=== PATIENT | female | born 1950 | race Caucasian/White ===

== ENCOUNTER 2016-05-27 04:12 | Inpatient (IN) | payer OTHER ==
[~2016-05-27] VITALS: Ht 168.9 cm; Wt 79.4 kg
[~2016-05-27 04:12] MED LIST: ADVAIR 250-501 EACH INH; ASPIRIN EC81 M1 PO; COREG25 M1 PO; EXFORGE 10-3201 EACH PO; FERROUS SULFAT325 M3 PO; HYDROCHLOROTH12.5 M2 PO; LIPITOR40 M1 PO; PLAVIX75 M1 PO; PROTONIX40 M3 PO; SPIRIVA18 MCG INH; TYLENOL WITH C1 EACH PO; VITAMIN D31000 UNI2 PO; ZOLOFT100 M1 PO
[2016-05-27] MEDS ORDERED: ASPIRIN325 M2 PO ×3 (10:28→14:29)
[2016-05-27] MEDS ORDERED: MIRALAX17 G1 PO (10:28)
[2016-05-27] MEDS ORDERED: DILAUDID2 M1 PO (10:28)
[2016-05-27] MEDS ORDERED: COLACE100 M1 PO (10:28)
[2016-05-27] MEDS ORDERED: MORPHINE SULFAT15 M3 PO (10:28)
--- NOTE | 2016-05-27 10:30 | Patient Discharge Instructions ---
Discharge Instructions General Discharge Information You were seen/treated for: Right hip pain You had these procedures: 05/27/16 right total hip arthroplasty Watch for these problems: Redness, swelling, fever, signs of infection. Uncontrolled pain, Excessive bleeding. Decreased range of motion or unable to bear weight. Chest pain, shortness of breath. Do not soak the wound: Yes No bath, but you may shower: Yes Other wound care: Daily dry dressing changes Special Instructions: Take Aspirin 325mg by mouth twice a day (1 in morning and 1 at night) for three weeks then stop and resume your normal plavix and baby aspirin doses. Diet Continue normal diet: Yes Activity Activity Self Limited: Yes Activity Limited to: Weight bear as tolerated Additional ACTIVITY Info: Daily physical therapy Acute Coronary Syndrome Inclusion Criteria At DC or during hospital stay patient has or had the following: ACS DIAGNOSIS No Discharge Core Measures Meds if any: Prescribed or Continued at Discharge Meds if any: NOT Prescribed or Continued at Discharge Congestive Heart Failure Inclusion Criteria At DC or during hospital stay patient has or had the following: CHF DIAGNOSIS No Discharge Core Measures Meds if any: Prescribed or Continued at Discharge Meds if any: NOT Prescribed or Continued at Discharge Cerebrovascular accident Inclusion Criteria At DC or during hospital stay patient has or had the following: CVA/TIA Diagnosis No Discharge Core Measures Meds if any: Prescribed or Continued at Discharge Meds if any: NOT Prescribed or Continued at Discharge Venous thromboembolism Inclusion Criteria VTE Diagnosis No VTE Type NONE VTE Confirmed by (Test) NONE Discharge Core Measures - Per Current guidelines, there needs to be overlap - treatment for the first 5 days of Warfarin therapy. - If discharged on Warfarin prior to 5 days of - overlap therapy, the patient will need to be - assessed for post discharge needs including - *Post discharge parental anticoagulation - *Warfarin and/or parental anticoagulation education - *Follow up date to check INR post discharge At least 5 days overlap therapy as Inpatient No Meds if any: Prescribed or Continued at Discharge Note: Overlap Therapy is Warfarin and Anticoagulant Meds if any: NOT Prescribed or Continued at Discharge
--- NOTE | 2016-05-27 10:31 | Admission Core Measures ---
Admission Meds I reviewed the following Meds: Current Medications Sig/Maribel Start time Last Medication Dose Stop Time Status Admin Acetaminophen 975 MG ONCE 05/27 0000 NR (Tylenol) 05/27 2358 Amlodipine Besylate 10 MG DAILY 05/28 1000 UNVr (Norvasc) Atorvastatin Calcium 40 MG DAILY 05/28 1000 UNVr (Lipitor) Budesonide/ 2 PUF BID 05/27 2199 UNVr Formoterol Fumarate (Symbicort) Carvedilol 25 MG BID 05/27 2199 UNVr (Coreg) Cefazolin Sodium 2,000 MG ONCE 05/27 0000 NR (Kefzol-Ancef Inj) 05/27 2358 Hydrochlorothiazide 12.5 MG DAILY 05/28 1000 UNVr (Hydrodiuril) Oxycodone HCl 10 MG ONCE 05/27 0000 NR (Roxicodone) 05/27 2358 Pantoprazole Sodium 40 MG DAILY 05/28 1000 UNVr (Protonix) Sertraline HCl 100 MG DAILY 05/28 1000 UNVr (Zoloft) Tiotropium [place] 1 PUF DAILY 05/28 1000 UNVr (Spiriva) Acute Coronary Syndrome Inclusion Criteria ACS Diagnosis No Inpatient Core Measures LDL Reminder: If No, please order W/I first 24hr of stay Congestive Heart Failure Inclusion Criteria CHF Diagnosis No Cerebrovascular accident Inclusion Criteria CVA/TIA Diagnosis No Inpatient Core Measures Bedside Swallow Eval Reminder: If BSE failed, place ST order Antithrombotic Reminder: Order Antithrombotic Medication by end of day 2 Antithrombotic Reminder: Document Reason Antithrombotic Not ordered by end of day 2 AFIB/Flutter Reminder: If Present, add to problem list AFIB/Flutter Reminder: Order Anticoag Medication for pts with AFIB/Flutter Atherosclerosis Reminder: If Present, add to problem list LDL Reminder: If No, please order W/I first 24hr of stay PT Order Reminder: If No, please order Venous thromboembolism Inpatient Core Measures VTE Risk Factors: Age > 40, [facility] prophylaxis d/t No contraindications No VTE Pharm Prophylaxis d/t No contraindications Inclusion Criteria - Per Current guidelines, there needs to be overlap - treatment for the first 5 days of Warfarin therapy. - Parenteral Anticoagulation (IV or SC) needs to be - given along with Warfarin therapy. VTE Diagnosis No VTE Type NONE VTE Confirmed by (Test) NONE Problem List As ranked by this Provider includes Assessment & Plan 1. Status post total hip replacement, right HOME MEDS Home Med List Amlodipine/Valsartan (Exforge 10-320 MG Tablet) 10 MG-320 MG TABLET 1 TAB PO DAILY HTN (Reported) Aspirin (Ecotrin*) 81 MG TABLET.DR 1 TAB PO DAILY PROPHO (Reported) Aspirin (Aspirin*) 325 MG TABLET 1 TAB PO BID BLOOD THINNER Atorvastatin Calcium (Lipitor) 40 MG TABLET 1 TAB PO DAILY CHOLESTEROL ( Reported) Carvedilol (Coreg) 25 MG TABLET 1 TAB PO BID HTN (Reported) Cholecalciferol (Vitamin D3) 1,000 UNIT TABLET 2 TAB PO DAILY PROPHO ( Reported) Clopidogrel Bisulfate (Plavix) 75 MG TABLET 1 TAB PO DAILY PVD (Reported) Docusate Sodium (Colace) 100 MG CAPSULE 1 CAP PO BID PRN CONSTIPATION Ferrous Sulfate 325 MG (65 MG IRON) TABLET 1 TAB PO TID ANEMIA (Reported) Fluticasone/Salmeterol (Advair 250-50 Diskus) 250 MCG-50 MCG/DOSE BLST.W.DEV 1 PUF INH BID COPD (Reported) Hydrochlorothiazide 12.5 MG TABLET 1 TAB PO DAILY BP (Reported) Hydromorphone HCl (Dilaudid) 2 MG TABLET 1-2 TAB PO Q4-6P PRN PAIN Morphine Sulfate (Morphine Sulfate ER) 15 MG TABLET.ER 1 TAB PO BIDP PAIN Pantoprazole Sodium (Protonix) 40 MG TABLET.DR 1 TAB PO DAILY GERD (Reported) Polyethylene Glycol 3350 (Miralax) 17 GRAM POWD.PACK 1 PAC PO DAILY PRN CONSTIPATION Sertraline HCl (Zoloft) 100 MG TABLET 1 TAB PO DAILY DEPRESSION (Reported) Tiotropium [place] (Spiriva) 18 MCG CAP.W.DEV 1 CAP INH DAILY COPD (Reported)
--- NOTE | 2016-05-27 10:32 | Discharge Summary ---
Visit Information Visit Dates Admission Date: 05/27/16 Discharge Date: 05/27/16 Hospital Course Course Attending Physician: ADEN YBARRA MD Primary Care Physician: WELLINGTON BERNSTEIN MD Hospital Course: Patient admitted to floor following procedure below. Patient ambulated with PT upon arrival to the floor. Patient continued to progress well. Upon discharge patient is afebrile, tolerating diet, pain controlled, ambulating well with rolling walker and PT. Complications: None Allergies: Coded Allergies: NO KNOWN ALLERGIES (05/23/16) Significant Procedures: 05/27/16 right total hip arthroplasty Disposition Summary Disposition Principal Diagnosis: Right hip pain Additional Diagnosis: None Discharge Disposition: home health services Discharge Instructions General Discharge Information Code Status: Full Code Patient's Diet: Resume normal diet Patient's Activity: Weightbearing as tolerated Daily physical therapy Follow-Up Instructions/Appts: Call office to schedule follow-up appointment. Medications at Discharge Discharge Medications: Stop taking the following medications: Clopidogrel Bisulfate (Plavix) 75 MG TABLET ORAL DAILY Aspirin (Ecotrin*) 81 MG TABLET.DR ORAL DAILY Continue taking these medications: Amlodipine/Valsartan (Exforge 10-320 MG Tablet) 10 MG-320 MG TABLET 1 Tablet ORAL DAILY Instructions: NIGHTLY Atorvastatin Calcium (Lipitor) 40 MG TABLET 1 Tablet ORAL DAILY Sertraline HCl (Zoloft) 100 MG TABLET 1 Tablet ORAL DAILY Pantoprazole Sodium (Protonix) 40 MG TABLET.DR 1 Tablet ORAL DAILY Cholecalciferol (Vitamin D3) 1,000 UNIT TABLET 2 Tablet ORAL DAILY Ferrous Sulfate (Ferrous Sulfate) 325 MG (65 MG IRON) TABLET 1 Tablet ORAL THREE TIMES DAILY Carvedilol (Coreg) 25 MG TABLET 1 Tablet ORAL TWICE DAILY Hydrochlorothiazide (Hydrochlorothiazide) 12.5 MG TABLET 1 Tablet ORAL DAILY Fluticasone/Salmeterol (Advair 250-50 Diskus) 250 MCG-50 MCG/DOSE BLST.W.DEV 1 Puff Inhale through mouth TWICE DAILY Tiotropium [place] (Spiriva) 18 MCG CAP.W.DEV 1 Capsule Inhale through mouth DAILY Start taking the following new medications: Aspirin (Aspirin*) 325 MG TABLET 1 Tablet ORAL TWICE DAILY Qty = 42 No Refills Morphine Sulfate (Morphine Sulfate ER) 15 MG TABLET.ER 1 Tablet ORAL 2 x Daily as needed Qty = 5 No Refills Hydromorphone HCl (Dilaudid) 2 MG TABLET 1-2 Tablet ORAL Q4-6P as needed for PAIN Qty = 36 No Refills Comments: Last Taken:05/27/16-- DILAUDID 2 MG GIVEN Time: 4:12 PM Docusate Sodium (Colace) 100 MG CAPSULE 1 Capsule ORAL TWICE DAILY as needed for CONSTIPATION Qty = 30 No Refills Polyethylene Glycol 3350 (Miralax) 17 GRAM POWD.PACK 1 Packet ORAL DAILY as needed for CONSTIPATION Qty = 14 No Refills Instructions: dissolve in water Copies To: AMANDEEP MENDEZ,WELLINGTON [facility]
--- NOTE | 2016-05-27 12:00 | RADIOLOGY REPORT ---
EXAMINATION: XR HIP, RIGHT CLINICAL INFORMATION: Status post right total hip replacement. COMPARISON: 04/22/2013 TECHNIQUE: AP and crosstable lateral views of the right hip. FINDINGS: Prosthetic components of the right total hip arthroplasty are appropriately aligned. No periprosthetic fracture. Gas from recent surgery is present in the surrounding soft tissues. IMPRESSION: Normal postoperative appearance of the right total hip prosthesis.
[2016-05-27 13:00] VITALS: BP 114/64
--- NOTE | 2016-05-27 14:32 | NUR ---
PATIENT RECEIVED FROM PACU AT 1300. PATIENT ALERT AND ORIENTED X 3. OOB WITH PT, WALKING WITH RW. PATIENT DENIES ANY PAIN. ADMISSION COMPLETE. BELKIS STOCKING AND ALPS APPLIED. DURAKOOL ALSO IN PLACE. CALL LIGHT WITHIN REACH. WILL CONTINUE TO MONITOR.
--- NOTE | 2016-05-27 14:50 | PN- Orthopedic ---
See Addendum Subjective Subjective: Post op check Awake and alert post op No pain at this time Has already walked with PT but hasn't cleared stairs yet Tolerating diet Objective Vital Signs and I&Os Vital Signs Date Time Temp Pulse Resp B/P Pulse O2 O2 Flow FiO2 Ox Delivery Rate 05/27 1300 97.5 63 16 114/64 93 Room Air Intake & Output 05/27 1600 05/27 0800 05/27 0000 05/26 1600 05/26 0800 05/26 0000 Intake Total 555 Output Total Balance 555 Intake, IV 75 Intake, Oral 480 Patient 175 lb Weight Physical Exam: vss, afebrile voided spontaneously General: alert and oriented times three Chest: clear anteriorly bilaterally, RRR Abd: soft, good bs Ext: warm, no edema, positive sensate, no calf tenderness, good strength Wound: dressed, dry Current Medications: Current Medications Sig/Maribel Start time Last Medication Dose Route Stop Time Status Admin Acetaminophen 650 MG Q4P PRN 05/27 1330 AC PO Acetaminophen 975 MG ONCE 05/27 0000 DC PO 05/27 2359 Amlodipine Besylate 10 MG DAILY 05/28 1000 AC PO Aspirin 325 MG BID 05/27 2200 AC PO Atorvastatin Calcium 40 MG DAILY 05/28 1000 AC PO Budesonide/ 2 PUF BID 05/27 2200 AC Formoterol Fumarate INH Carvedilol 25 MG BID 05/27 2200 AC PO Cefazolin Sodium 2 GM IQ8 05/27 1600 AC N/A 1 UNIT IV 05/28 0029 Cefazolin Sodium 2,000 MG ONCE 05/27 0000 DC IV 05/27 2359 Dextrose/Sodium 1,000 ML .[id number] 05/27 1330 AC 05/27 Chloride IV 1327 Docusate Sodium 100 MG DAILY 05/28 1000 AC PO Fentanyl Citrate 100 MCG .STK-MED ONE 05/27 0640 DC IM 05/27 0641 Hydrochlorothiazide 12.5 MG DAILY 05/28 1000 AC PO Hydromorphone HCl 2 MG Q4P PRN 05/27 1330 AC PO Hydromorphone HCl 4 MG Q4P PRN 05/27 1330 AC PO Losartan Potassium 100 MG DAILY 05/28 1000 AC PO Midazolam HCl 4 MG .STK-MED ONE 05/27 0640 DC IM 05/27 0641 Morphine Sulfate 2 MG Q2P PRN 05/27 1330 AC IV Ondansetron HCl 4 MG Q6P PRN 05/27 1330 AC IV Oxycodone HCl 10 MG .STK-MED ONE 05/27 0838 DC PO 05/27 0839 Oxycodone HCl 10 MG ONCE 05/27 0000 DC PO 05/27 2359 Pantoprazole Sodium 40 MG DAILY 05/28 1000 AC IV Patient Medication 1 ED .STK-MED ONE 05/27 1338 DC Teaching ED 05/27 1339 Polyethylene Glycol 17 GM DAILY NEEDED PRN 05/27 1330 AC PO Sertraline HCl 100 MG DAILY 05/28 1000 AC PO Tiotropium [place] 1 PUF DAILY 05/28 1000 AC INH Tranexamic Acid 2,000 MG .STK-MED ONE 05/27 0640 DC IV 05/27 0641 Assessment/Plan Assessment/Plan 65 yo female s/p R THR pain well controlled await PT clearance dc instructions given, all questions answered asa 325mg po bid for 3 weeks, then restart asa 81mg po daily and plavix daily as pre-op Core Measures/Miscellaneous Venous Thromboembolism VTE Risk Factors: Age > 40, Surgery VTE Contraindications: No Contraindications VTE Diagnosis: No VTE Type: NONE VTE Confirmed by (Test): NONE Beta Molly Is Beta Molly a Home Med? No Antibiotics Is Patient on Antibiotics? Yes If Yes: prophylaxis (24 hrs post op)
[2016-05-27 15:11] VITALS: BP 118/62
--- NOTE | 2016-05-27 17:23 | Operative Report ---
Operative/Inv Procedure Report Surgery Date: 05/27/16 Name of Procedure: Right total hip replacement Pre-Operative Diagnosis: Primary right hip DJD Post-Operative Diagnosis: Same Estimated Blood Loss: 250 Surgeon/Sound Engineer Audio Control: AMADA MENDEZ,ADEN Wynne Anesthesia: block Operative/Procedure Note Note: Description of Procedure: The patient was taken to the operating room and positively identified. After induction of spinal anesthesia and administration of appropriate pre-operative antibiotics, the patient was positioned supine on the operating room table and all bony prominences were well padded. After performing a surgical timeout, the right lower extremity was prepped and draped in the usual sterile fashion. A direct anterior approach was made to the right hip. The incision was carried sharply through superficial soft tissues to the level of the fascia. Meticulous hemostasis was maintained with Bovie electocautery. The fascia over the tensor fascia abby muscle was opened sharply and the interval between the TFL and the sartorius was entered bluntly taking care to stay lateral to the lateral femoral cutaneous nerve. Retractors were placed around the femoral neck and the pericapsular fat was identified. The ascending branches of the lateral femoral circumflex vessels were identified and carefully coagulated. The pericapsular fat and anterior capsule were then resected. A napkin ring osteotomy was performed and the femoral head was removed without difficulty. Attention was then turned to the acetabulum. After appropriate placement of retractors, the acetabulum was exposed. Soft tissue was cleaned from the acetabular margin and notch. Overhanging osteophytes were removed and the teardrop was exposed. The acetabulum was then sequentially reamed to accept a 56 mm Fadia Tritanium hemispherical solid back shell. This was impacted into place in the appropriate position and fitted with a 36 mm Trident X3 zero degree polyethylene insert. Attention was then turned to the femur. After performing the appropriate ligament releases, the proximal femur was exposed. It was then sequentially broached to accept a size 4 Strong accolade 2 stem. This was trialed for leg length and stability. The trial component was removed and the final component was impacted into place. The trunnion was carefully cleaned and fit with a 36 mm, +0 Biolox delta ceramic femoral head. The hip was reduced and put through a full range of motion and found to be stable. The articular space was then irrigated with sterile saline. The periarticular soft tissues were infilitrated with Marcaine. The fascial layer was closed with interrupted #1 vicryl suture and the skin was re-approximated with interrupted 2 -0 vicryl. The skin was closed with a running 3-0 V-Lock suture. Steri-strips and a sterile dressing were applied. The patient was awakened and taken to the recovery room in satisfactory condition.
--- NOTE | 2016-05-27 17:26 | NUR ---
PATIENT DISCHARGEDE HOME TO HOME HEALTH SERVICE.DISCHARGE PACKET GIVEN TO PATIENT. IV D/C'D. DINNER BAG GIVEN TO PATIENT AT TIME OF DISCHARGE. PATIENT LEFT SAFELY VIA WHEEL CHAIR.
== END 2016-05-27 17:23 | disposition home health service (06) | DRG 470 ==
LOC: ENRESERVTM → ENRESERVDT → SDA 04:12 → 2NA 13:05
PROVIDERS: ADMIT Orthopaedic Surgery
PROC: 0SR904A Replacement of Right Hip Joint with Ceramic on Polyethylene Synthetic Substitute, Uncemented, Open Approach (ICD-10-PCS; principal; 2016-05-27)
DX: M16.11 Unilateral primary osteoarthritis, right hip (principal); J44.9 Chronic obstructive pulmonary disease, unspecified; F32.9 Major depressive disorder, single episode, unspecified; I10 Essential (primary) hypertension; F17.200 Nicotine dependence, unspecified, uncomplicated; D50.9 Iron deficiency anemia, unspecified; Z86.73 Personal history of transient ischemic attack (TIA), and cerebral infarction without residual deficits; E78.5 Hyperlipidemia, unspecified
CPT/HCPCS: 2NASP; 73502-RT; 88304; 97110-GO; 97116-GO; 97161-GP; 97530-GO; J0690; J0735; J2405; J3490; J7042

== ENCOUNTER 2016-08-01 11:00 | Emergency (ER) | payer OTHER ==
[~2016-08-01] VITALS: Ht 167.6 cm; Wt 79.4 kg
[~2016-08-01 11:00] MED LIST changes: +ASPIRIN325 M2 PO; +COLACE100 M1 PO; +DILAUDID2 M1 PO; +MIRALAX17 G1 PO; +MORPHINE SULFAT15 M3 PO
--- NOTE | 2016-08-01 11:55 | ED SKIN/ALLERGY COMPLAINT ---
History of Present Illness General Chief Complaint: Lower Extremity Problems Stated Complaint: LFT KNEE BLEEDING Source: patient Exam Limitations: no limitations Allergies Coded Allergies: No Known Allergies (08/01/16) Reconcile Medications Amlodipine/Valsartan (Exforge 10-320 MG Tablet) 10 MG-320 MG TABLET 1 TAB PO DAILY HTN (Reported) NIGHTLY Aspirin (Aspirin*) 325 MG TABLET 1 TAB PO BID BLOOD THINNER Atorvastatin Calcium (Lipitor) 40 MG TABLET 1 TAB PO DAILY CHOLESTEROL ( Reported) Carvedilol (Coreg) 25 MG TABLET 1 TAB PO BID HTN (Reported) Cholecalciferol (Vitamin D3) 1,000 UNIT TABLET 2 TAB PO DAILY PROPHO ( Reported) Clopidogrel Bisulfate (Clopidogrel) 75 MG TABLET 1 TAB PO DAILY BLOOD THINNER (Reported) Docusate Sodium (Colace) 100 MG CAPSULE 1 CAP PO BID PRN CONSTIPATION Ferrous Sulfate 325 MG (65 MG IRON) TABLET 1 TAB PO TID ANEMIA (Reported) Fluticasone/Salmeterol (Advair 250-50 Diskus) 250 MCG-50 MCG/DOSE BLST.W.DEV 1 PUF INH BID COPD (Reported) Hydrochlorothiazide 12.5 MG TABLET 1 TAB PO DAILY BP (Reported) Hydromorphone HCl (Dilaudid) 2 MG TABLET 1-2 TAB PO Q4-6P PRN PAIN Morphine Sulfate (Morphine Sulfate ER) 15 MG TABLET.ER 1 TAB PO BIDP PAIN Pantoprazole Sodium (Protonix) 40 MG TABLET.DR 1 TAB PO DAILY GERD (Reported) Polyethylene Glycol 3350 (Miralax) 17 GRAM POWD.PACK 1 PAC PO DAILY PRN CONSTIPATION dissolve in water Sertraline HCl (Zoloft) 100 MG TABLET 1 TAB PO DAILY DEPRESSION (Reported) Tiotropium [place] (Spiriva) 18 MCG CAP.W.DEV 1 CAP INH DAILY COPD (Reported) Triage Note: PT TO ED FOR C/C OF "THERE WAS A WART ON MY L KNEE LAST NIGHT, BUT I WOKE UP AT 4AM AND NOTICED IT WAS GONE AND NOW THE SPOT WON'T STOP BLEEDING." PT IS ON PLAVIX AND BABY ASPIRIN FOR HX OF CVA. WENT TO WALK IN AND THEY SENT PT HERE. BLEEDING WELL CONTROLLED IN TRIAGE. Triage Nurses Notes Reviewed? yes Onset: Abrupt Duration: constant Timing: single episode today Severity: mild Severity Numbers: 1 No Modifying Factors: none HPI: Patient is a 65-year-old female with past medical history of CVA currently on aspirin and Plavix, hypertension, COPD, GERD who presents emergency room stating that a few years ago patient had a bleeding wart that was cauterized by her biotech production specialist or patient states that yesterday she has a known chronic or to the left lateral aspect of her knee where she woke up this morning with blood in her bed and the war seen to have been removed however patient denies any trauma or mechanism or scratching episode. Patient has tried direct pressure ice and STYPTIC pencil to try to stop the bleeding however the bleeding still continues. Denies any pain denies any lightheaded sensation or dizziness. (LOGAN MURRAY) Vital Signs & Intake/Output Vital Signs & Intake/Output Vital Signs Date Time Temp Pulse Resp B/P B/P Pulse O2 O2 Flow FiO2 Mean Ox Delivery Rate 08/01 1304 97.0 66 16 122/70 99 Room Air 08/01 1117 98.4 67 15 100/65 93 Room Air Room Air Past History Travel History Traveled to [place] past 21 day No Medical History Any Pertinent Medical History? see below for history Neurological: CVA EENT: SINUS SURGERY Cardiovascular: hypertension, hyperlipidemia Respiratory: COPD Gastrointestinal: GERD Hepatic: NONE Renal: NONE Musculoskeletal: osteoarthritis Psychiatric: NONE Endocrine: NONE Blood Disorders: anemia Cancer(s): NONE HOIST MECHANIC/Reproductive: TUBAL LIGITION History of MRSA: No History of VRE: No History of CDIFF: No Influenza Vaccine: 12/09/15 Surgical History Surgical History: non-contributory, N Psychosocial History Who do you live with Spouse Services at Home None What is your primary language Sinhala Tobacco Use: Current Daily Use Daily Tobacco Use Amount/Type: => 5 Cigarettes daily ETOH Use: denies use Illicit Drug Use: denies illicit drug use Family History Hx Contributory? No (LOGAN MURRAY) Review of Systems Review of Systems Constitutional: Reports: no symptoms. EENTM: Reports: no symptoms. Respiratory: Reports: no symptoms. Cardiovascular: Reports: no symptoms. GI: Reports: no symptoms. Genitourinary: Reports: no symptoms. Musculoskeletal: Reports: no symptoms. Skin: Reports: see HPI. Neurological/Psychological: Reports: no symptoms. Hematologic/Endocrine: Reports: see HPI, bleeding. Immunologic/Allergic: Reports: no symptoms. All Other Systems: Reviewed and Negative (LOGAN MURRAY) Physical Exam Physical Exam General Appearance: no apparent distress, alert, comfortable Comments: Well-developed well-nourished no apparent distress. HEENT: Atraumatic, extraocular motion intact Neck: Supple, no lymphadenopathy Back: Nontender Respiratory: No respiratory distress Extremities: No edema, full range of motion Neuro: Alert and oriented x3 Psych: Mood affect normal, normal memory normal judgment. Diagram Body: 1) Noted 5 mm circular dark skin wound with minimal peripheral active bleeding. No surrounding erythema no warmth no fluctuance no induration full active range of motion noted with left knee extension and flexion (LOGAN MURRAY) Progress Differential Diagnosis: HYPERCOAGULABLE STATE MELANOMA Plan of Care: Patient on examination has minimal bleeding and which Kaltostat and bandages were applied with direct pressure. After 20 minutes the wound was rechecked and no active bleeding was noted. Sudheer Bertrand MD also evaluated patient and agrees with disposition and plan (LOGAN MURRAY) Departure Departure Disposition: HOME OR SELF CARE Condition: Stable Clinical Impression Primary Impression: Skin avulsion Secondary Impressions: Verruca Referrals: AMANDEEP MENDEZ,WELLINGTON [facility] (PCP/Family) Additional Instructions: As discussed continue to apply direct pressure with the bandages provided to the emergency room today for the next 24 hours. Change THE DRESSINGS tomorrow and then leave area open to improve healing. If you know worsening symptoms of redness, pain, swelling, discharge or bleeding does not stop after 10 minutes in the future return to emergency room immediately. Follow-up next week with your biotech production specialist for further evaluation treatment Departure Forms: Customer Survey General Discharge Information (LOGAN MURRAY) PA/FLOWER CUTTER Co-Sign Statement Statement: ED Attending supervision documentation- [X] I saw and evaluated the patient. I have also reviewed all the pertinent lab results and diagnostic results. I agree with the findings and the plan of care as documented in the PA's/FLOWER CUTTER's documentation. [] I have reviewed the ED Record and agree with the PA's/FLOWER CUTTER's documentation. [] Additions or exceptions (if any) to the PAs/FLOWER CUTTER's note and plan are summarized below: [] (J CARLOS MENDEZ,SUDHEER De La Cruz)
[2016-08-01] MEDS ORDERED: CLOPIDOGREL75 M1 PO (12:32)
[2016-08-01 13:04] VITALS: BP 122/70
== END 2016-08-01 13:14 ==
LOC: ERH 11:00
DX: S81.002A Unspecified open wound, left knee, initial encounter (principal); B07.9 Viral wart, unspecified; X58.XXXA Exposure to other specified factors, initial encounter; Y93.9 Activity, unspecified; Y92.9 Unspecified place or not applicable

== ENCOUNTER → 2017-03-18 | Day surgery (SDC) | payer OTHER ==
[~2017-03-18] VITALS: Ht 167.6 cm; Wt 78.0 kg
[~2017-03-18] MED LIST changes: +CLOPIDOGREL75 M1 PO
--- NOTE | 2017-03-18 08:26 | Operative Report ---
Operative/Inv Procedure Report Surgery Date: 03/18/17 Name of Procedure: Cataract extraction with intraocular lens implantation left eye Pre-Operative Diagnosis: Age-related cataract left eye Post-Operative Diagnosis: Same Estimated Blood Loss: none Surgeon/Treating Plant Operator: Behzad MENDEZ,Antonio Garcia Anesthesia: local monitored anesthesi Complications: None Operative/Procedure Note Note: Preoperatively the patient was noted to have 20/40 vision in the left eye with a decrease with glare testing down to 20/60. The risks, benefits, and alternatives to surgery were discussed at length with the patient. Informed consent was obtained. The patient was brought to the operating room where the left eye was prepped and draped in the normal sterile fashion. A speculum was placed on the left eye with good exposure. A stab incision was made using a paracentesis blade. Intracameral lidocaine was placed. Viscoelastic was used to form the anterior chamber. A clear corneal incision was made using keratome blade. A continuous curvilinear capsulorrhexis was made using a cystotome needle followed by Utrata forceps. There was no extension of the rhexis. Hydrodissection was performed using balanced salt solution. The cataract was removed using a stop and chop technique. Residual cortex was removed using coaxial irrigation and aspiration. The capsule was polished using irrigation and aspiration and the posterior capsule was cleaned using a balanced salt solution jet. There was no residual lens material inside the eye. The capsular bag was reformed using viscoelastic. An intraocular lens SA60WF of power 20.5 was verified and confirmed. It was loaded into an injector and injected into the eye. The lens was placed entirely within the capsular bag. Viscoelastic was evacuated using irrigation and aspiration. The wounds were stromally hydrated and the eye filled to physiologic pressure using balanced salt solution. Intracameral cefuroxime was placed. Speculum was removed and a shield was placed on the eye. The patient was brought to the recovery area without incident. Instructions were given to follow-up the next day for routine postoperative care.
== END ==
LOC: STS 03:24
DX: H25.9 Unspecified age-related cataract (principal); I10 Essential (primary) hypertension; J44.9 Chronic obstructive pulmonary disease, unspecified; F17.210 Nicotine dependence, cigarettes, uncomplicated; Z86.73 Personal history of transient ischemic attack (TIA), and cerebral infarction without residual deficits
CPT/HCPCS: J2250; V2632

== ENCOUNTER → 2017-04-03 | Day surgery (SDC) | payer OTHER ==
[~2017-04-03] VITALS: Ht 167.6 cm; Wt 78.0 kg
--- NOTE | 2017-04-03 13:24 | Operative Report ---
Operative/Inv Procedure Report Surgery Date: 04/03/17 Name of Procedure: Cataract extraction with intraocular lens implantation right eye Pre-Operative Diagnosis: Age-related cataract right eye Post-Operative Diagnosis: Same Estimated Blood Loss: none Surgeon/Classroom Assistant: Behzad MENDEZ,Antonio Garcia Anesthesia: local monitored anesthesi Complications: None Operative/Procedure Note Note: Preoperatively the patient was noted to have 20/20 vision in the right eye with a decrease with glare testing down to 20/60. The risks, benefits, and alternatives to surgery were discussed at length with the patient. Informed consent was obtained. The patient was brought to the operating room where the right eye was prepped and draped in the normal sterile fashion. A speculum was placed on the right eye with good exposure. A stab incision was made using a paracentesis blade. Intracameral lidocaine was placed. Viscoelastic was used to form the anterior chamber. A clear corneal incision was made using keratome blade. A continuous curvilinear capsulorrhexis was made using a cystotome needle followed by Utrata forceps. There was no extension of the rhexis. Hydrodissection was performed using balanced salt solution. The cataract was removed using a stop and chop technique. Residual cortex was removed using coaxial irrigation and aspiration. The capsule was polished using irrigation and aspiration and the posterior capsule was cleaned using a balanced salt solution jet. There was no residual lens material inside the eye. The capsular bag was reformed using viscoelastic. An intraocular lens SA60WF of power 21.0 was verified and confirmed. It was loaded into an injector and injected into the eye. The lens was placed entirely within the capsular bag. Viscoelastic was evacuated using irrigation and aspiration. The wounds were stromally hydrated and the eye filled to physiologic pressure using balanced salt solution. Intracameral cefuroxime was placed. Speculum was removed and a shield was placed on the eye. The patient was brought to the recovery area without incident. Instructions were given to follow-up the next day for routine postoperative care.
== END ==
LOC: STS 02:18
DX: H25.9 Unspecified age-related cataract (principal); I10 Essential (primary) hypertension; J44.9 Chronic obstructive pulmonary disease, unspecified; Z86.73 Personal history of transient ischemic attack (TIA), and cerebral infarction without residual deficits; Z79.82 Long term (current) use of aspirin
CPT/HCPCS: J2250; V2632

== ENCOUNTER 2017-09-28 09:11 | Inpatient (IN) | payer OTHER ==
[~2017-09-28] VITALS: Ht 168.9 cm; Wt 81.3 kg
--- NOTE | 2017-09-28 10:01 | ED INFLUENZA/URI COMPLAINT ---
History of Present Illness General Chief Complaint: Upper Respiratory Sx/Fever Stated Complaint: URI Source: patient Exam Limitations: no limitations Vital Signs & Intake/Output Vital Signs & Intake/Output Vital Signs Date Time Temp Pulse Resp B/P B/P Pulse O2 O2 Flow FiO2 Mean Ox Delivery Rate 09/28 1559 Room Air Room Air 09/28 1539 99.2 91 18 112/71 09/28 1538 99.2 91 18 112/71 09/28 1400 99.2 09/28 1400 99.2 09/28 1332 98.5 87 20 130/70 94 Room Air Room Air 09/28 1305 101.3 09/28 1015 95 Room Air Room Air 09/28 1008 93 09/28 0915 99.8 96 18 101/67 94 Room Air Room Air Allergies Coded Allergies: No Known Allergies (08/01/16) Triage Note: TRIAGE: 67 Y/O FEMALE PRESENTS C/O COUGH, SOB SINCE FRIDAY. TEMP 99.8. PATIENT REPORTS TEMP ABOVE 100 PRIOR TO ARRIVAL - DID NOT TAKE MEDICATION FOR TEMP. SPO2 ON ROOM AIR IN TRIAGE: 94-95%. WAS RECENTLY ON AUGMENTIN 09/18-09/28 AND PRESNISONE X DAYS. Triage Nurses Notes Reviewed? yes HPI: 67-year-old female smoker(1 pack per day for 50 years) with past medical history of COPD not on home oxygen, hypertension, hyperlipidemia, TIA, chronic sinus infections, GERD and arthritis came to ED with chief complaint of productive cough, fever and generalized weakness for last 1 week. Patient reported that she was in her usual state of health until last when she started to experience having upper respiratory tract infection and she went to urgent care. The urgent care doctor prescribed her Augmentin for 10 days and prednisone for 5 days. [facility] she was taking her medications. Patient reported that she didn't get better with medications and she came back yesterday from vacation. Patient is still feeling generalized weakness, fever and episodes of cough with yellow colored sputum. Patient also reported having sweating. She checked her temperature this morning that was 100.5F. patient also reported having pain in the chest on taking deep breaths and while coughing. Patient also stated that she has headache but she didn't take any Tylenol. She also reported that her shortness of breath is worsening especially on exertion. Patient is using her inhalers nebulization treatment every day. Patient denied central chest pain, palpitation, nausea, vomiting, lightheadedness, diarrhea, constipation, abdominal pain, orthopnea and dysuria. (Ricardo MENDEZ,[place]) Reconcile Medications Amlodipine/Valsartan (Exforge 10-320 MG Tablet) 10 MG-320 MG TABLET 1 TAB PO DAILY HTN (Reported) NIGHTLY Aspirin (Ecotrin*) 81 MG TABLET.DR 1 TAB PO DAILY HEART/BLOOD (Reported) Atorvastatin Calcium (Lipitor) 40 MG TABLET 1 TAB PO DAILY CHOLESTEROL ( Reported) Carvedilol (Coreg) 25 MG TABLET 1 TAB PO BID HTN (Reported) Cholecalciferol (Vitamin D3) 1,000 UNIT TABLET 2 TAB PO DAILY PROPHO ( Reported) Clopidogrel Bisulfate (Clopidogrel) 75 MG TABLET 1 TAB PO DAILY BLOOD THINNER (Reported) Ferrous Sulfate 325 MG (65 MG IRON) TABLET 1 TAB PO TID ANEMIA (Reported) Fluticasone/Salmeterol (Advair 250-50 Diskus) 250 MCG-50 MCG/DOSE BLST.W.DEV 1 PUF INH BID COPD (Reported) Hydrochlorothiazide 12.5 MG TABLET 1 TAB PO DAILY BP (Reported) [place]-3/Dha/Epa/Fish Oil (Fish Oil 1,000 MG Softgel) 300 MG-1,000 MG CAPSULE 1 CAP PO BID SUPPLEMENT (Reported) Pantoprazole Sodium (Protonix) 40 MG TABLET.DR 1 TAB PO DAILY GERD (Reported) Sertraline HCl (Zoloft) 100 MG TABLET 1 TAB PO DAILY DEPRESSION (Reported) Tiotropium Pickett (Spiriva Respimat) 2.5 MCG/ACTUATION MIST.INHAL 2 PUFF INH QAM COPD (Reported) (Marla MENDEZ,Dontrell Garcia) Past History Travel History Traveled to [place] past 21 day No Medical History Any Pertinent Medical History? none Neurological: CVA EENT: SINUS SURGERY Cardiovascular: hypertension, hyperlipidemia Respiratory: COPD Gastrointestinal: GERD Hepatic: NONE Renal: NONE Musculoskeletal: osteoarthritis Psychiatric: NONE Endocrine: NONE Blood Disorders: anemia Cancer(s): NONE GUINEA PIG BREEDER/Reproductive: TUBAL LIGITION History of MRSA: No History of VRE: No History of CDIFF: No Surgical History Surgical History: non-contributory, N Psychosocial History Who do you live with Spouse Services at Home None What is your primary language Mexican Tobacco Use: Current Daily Use Daily Tobacco Use Amount/Type: => 5 Cigarettes daily ETOH Use: occasional use Illicit Drug Use: denies illicit drug use Family History Hx Contributory? No (Ricardo MENDEZ,[place]) Review of Systems Review of Systems Constitutional: Reports: chills, fever, weakness. EENTM: Reports: no symptoms. Respiratory: Reports: cough, short of breath, sputum production. Denies: hemoptysis, wheezing. Cardiovascular: Reports: chest pain. Denies: orthopena, palpitations, syncope. GI: Denies: abdominal pain, diarrhea, melena, nausea, vomiting. Genitourinary: Denies: frequency, hematuria, pain. Musculoskeletal: Reports: see HPI. Neurological/Psychological: Reports: no symptoms. (Ricardo MENDEZ,[place]) Physical Exam Physical Exam General Appearance: well developed/nourished, no apparent distress, alert, awake Head: atraumatic, normal appearance Eyes: Bilateral: normal appearance, PERRL, EOMI. Ears, Nose, Throat: normal ENT inspection, moist mucous membrane, hearing grossly normal Neck: normal inspection, supple Respiratory: normal breath sounds, chest non-tender, no respiratory distress Cardiovascular: regular rate/rhythm Gastrointestinal: normal bowel sounds, soft, non-tender Extremities: normal inspection Neurologic/Psych: no motor/sensory deficits, awake, alert, oriented x 3 Core Measures Sepsis Present: No Sepsis Focused Exam Completed? No (Ricardo MENDEZ,[place]) Progress Differential Diagnosis: pneumonia, pharyngitis, sinusitis Plan of Care: Orders Procedure Date/time Status CBC WITHOUT DIFFERENTIAL 09/29 0600 Active BASIC ELECTROLYTES PLUS BUN&CR 09/29 0600 Active Regular Diet 09/28 D Active RT: Evaluation 09/28 1558 Active Weight 09/28 1405 Active Vital Signs 09/28 1405 Active Teach/Educate 09/28 1405 Active Pain Treatment and Response 09/28 1405 Active Nutritional Intake, Monitor 09/28 1405 Active Isolation 09/28 1405 Active Intake & Output 09/28 1405 Active Patient Care Conference 09/28 1405 Active Activity/Ambulation 09/28 1405 Active BLOOD CULTURE 09/28 1315 Active STREP PNEUMO URINARY ANTIGEN 09/28 1304 Complete LEGIONELLA URINARY ANTIGEN 09/28 1304 Complete URINALYSIS 09/28 1304 Complete TRC EVALUATION (GEN) 09/28 1300 Complete Pathway - chart 09/28 1300 Active House Staff 09/28 1300 Active BLOOD CULTURE 09/28 1300 Active Code Status 09/28 1300 Active Patient Data 09/28 1140 Active ED Holding Orders 09/28 1134 Active Admit to inpatient 09/28 1134 Active Vital Signs 09/28 1134 Active Code Status 09/28 1134 Complete TROPONIN LEVEL 09/28 0946 Complete CBC WITHOUT DIFFERENTIAL 09/28 0946 Complete BASIC ELECTROLYTES PLUS BUN&CR 09/28 0946 Complete EKG 09/28 0946 Active Intake & Output 09/28 0914 Complete THERAPIST ORDERS 09/28 UNK Complete VTE Mechanical Prophylaxis 09/28 UNK Active Intake & Output 09/28 UNK Active Activity/Ambulation 09/28 UNK Active Current Medications Sig/Maribel Start time Last Medication Dose Stop Time Status Admin Azithromycin 250 MG 1200 09/29 1200 AC (Zithromax) Ceftriaxone Sodium 1,000 MG 1200 09/29 1200 AC (Rocephin) Enoxaparin Sodium 40 MG DAILY 09/29 0900 AC (Lovenox) Tiotropium Pickett 1 PUF DAILY 09/29 0900 AC (Spiriva) Albuterol Sulfate 3 ML EVERY 4 HRS/AWAKE 09/28 1600 UNV (Proventil) Ipratropium Pickett 2.5 ML EVERY 4 HRS/AWAKE 09/28 1600 UNV (Atrovent) Aspirin Buffered 81 MG DAILY 09/28 1400 AC 09/28 (Ecotrin) 1539 Atorvastatin Calcium 40 MG DAILY 09/28 1400 AC 09/28 (Lipitor) 1539 Carvedilol 25 MG BID 09/28 1400 AC 09/28 (Coreg) 1539 Cholecalciferol 1,000 IU DAILY 09/28 1400 AC 09/28 (Vitamin D) 1540 Clopidogrel Bisulfate 75 MG DAILY 09/28 1400 AC 09/28 (Plavix) 1540 Ferrous Sulfate 325 MG TID 09/28 1400 AC 09/28 (Feosol) 1539 Fish Oil 1,050 MG DAILY 09/28 1400 AC 09/28 ([place]-3) 1540 Hydrochlorothiazide 12.5 MG DAILY 09/28 1400 AC 09/28 (Hydrodiuril) 1539 Omeprazole 40 MG DAILY AC 09/28 1400 AC 09/28 (Prilosec) 1540 Sertraline HCl 100 MG DAILY 09/28 1400 AC 09/28 (Zoloft) 1541 Acetaminophen 650 MG Q6P PRN 09/28 1300 AC 09/28 (Tylenol) 1305 Acetaminophen 1,000 MG Q6 PRN 09/28 1300 AC (Ofirmev) Amlodipine Besylate 10 MG DAILY 09/28 1300 AC 09/28 (Norvasc) 1538 Laboratory Tests 09/28/17 1325: Urine Color YEL, Urine Clarity HAZY H, Urine pH 6.0, Ur Specific King >= 1.030, Urine Protein 100 H, Urine Ketones NEG, Urine Nitrite NEG, Urine Bilirubin NEG, Urine Urobilinogen 0.2, Ur Leukocyte Esterase NEG, Ur Microscopic SEDIMENT EXAMINED, Urine RBC 5-10 H, Urine WBC 1-3 H, Ur Epithelial Cells MOD H, Urine Bacteria FEW H, Hyaline Casts RARE H, Urine Mucus MOD H, Urine Hemoglobin MOD H, Urine Glucose NEG 09/28/17 1021: Anion Gap 12, Estimated GFR > 60, BUN/Creatinine Ratio 52.5 H, Troponin I < 0.01, CBC w Diff MAN DIFF ORDERED, RBC 4.38, MCV 95.7, MCH 31.9 H, MCHC 33.3, RDW 13.6, MPV 8.2, Gran % 93.1 H, Lymphocytes % 3.9 L, Monocytes % 2.6, Eosinophils % 0.2, Basophils % 0.2, Absolute Granulocytes 17.5 H, Absolute Lymphocytes 0.7 L, Absolute Monocytes 0.5, Absolute Eosinophils 0, Absolute Basophils 0, Normocytic RBCs VERIFIED, Normochromic RBCs VERIFIED Microbiology 09/28 1541 BLOOD: Blood Culture - RECD 09/28 1530 BLOOD: Blood Culture - RECD 09/28 1325 URINE ROUT: Legionella Antigen - COMP 09/28 132 URINE ROUT: Streptococcus pneumoniae Antigen (M - COMP Comments: Considering patient's past medical history of COPD she failed outpatient treatment with Augmentin times prednisone and she is still feeling generalized weakness with productive cough and fever. Patient is high risk for the pneumonia. Patient is 67-year-old female and smoker complaining of chest pain we will check her troponin and EKG to rule out any ischemic cardiac injury. We will check CBC and chest x-ray to look for pneumonia. Her WBC count is elevated probably due to prednisone use. Her chest x-ray showed questionable right lower pneumonia. Her rest of labs are still pending. We will cover the patient with azithromycin and ceftriaxone for community-acquired pneumonia. Patient will be admitted to inpatient. (Ricardo MENDEZ,Michel) Diagnostic Imaging: Viewed by Me: Radiology Read. Discussed w/RAD: Radiology Read. CXR Impression: PATIENT: JASON NORMAN PRESENT AGE: 67 PATIENT ACCOUNT NO: [id number] : 49 LOCATION: [facility] ORDERING PHYSICIAN: Michel Silva MD SERVICE DATE: 09/28/17 EXAM TYPE: RAD - XRY-CHEST XRAY , TWO VIEWS EXAMINATION: XR CHEST CLINICAL INFORMATION: Productive cough, fever and generalized weakness COMPARISON: Previous chest x-ray most recent November 2016 TECHNIQUE: 2 views of the chest were obtained. FINDINGS: The cardiac and mediastinal contours are stable. There is increased opacity in the left lower lobe questionable for small left lower lobe pneumonia. The lungs are otherwise clear. There is no pleural effusion or pneumothorax. There are degenerative changes of the spine. IMPRESSION: Question small left lower lobe pneumonia. DICTATED BY: Priscilla Wilson MD DATE/TIME DICTATED:09/28/171107 BOILING TUB OPERATOR:BRAXTON DATE/TIME TRANSCRIBED:09/28/171107 CONFIDENTIAL, DO NOT COPY WITHOUT APPROPRIATE AUTHORIZATION. <Electronically signed in Other Vendor System> SIGNED BY: Priscilla Wilson MD 09/28/17 1114 Initial ED EKG: NSR, nonspecific ST T wave chg Prior EKG: unchanged (Marla MENDEZ,Dontrell Garcia) Departure Departure Disposition: STILL A PATIENT Condition: Stable Clinical Impression Primary Impression: Community acquired pneumonia Referrals: Fior MENDEZ,Parvez Solis (PCP/Family) Departure Forms: Customer Survey General Discharge Information Admission Note Spoke With: Aldo MENDEZ,Amibob Documentation of Exam: Documentation of any treatments & extenuating circumstances including Concerns Regarding Discharge (functional status, medication knowledge or non-compliance, living conditions, etc.) that warrant an admission rather than observation: It's IV antibiotics for community-acquired pneumonia, pulmonary consult and respiratory treatments for COPD. (Michel Silva MD) Resident Co-Sign Statement Statement: ED Attending supervision documentation- [X] I saw and evaluated the patient. I have also reviewed all the pertinent lab results and diagnostic results. I agree with the findings and the plan of care as documented in the Resident's documentation. [X] I have reviewed the ED Record and agree with the Resident's documentation. [] Additions or exceptions (if any) to the Resident's note and plan are summarized below: [] (Marla MENDEZ,Dontrell Garcia)
[2017-09-28 10:37] LABS: ABSOLUTE BASOPHIL COUNT 0 /CUMM (0.0-0.2); ABSOLUTE EOSINOPHIL COUNT 0 /CUMM (0.0-0.7); ABSOLUTE GRANULOCYTE CT 17.5 /CUMM (1.4-6.5); ABSOLUTE LYMPH COUNT 0.7 /CUMM (1.2-3.4); ABSOLUTE MONOCYTE COUNT 0.5 /CUMM (0.10-0.60); BASOPHIL % 0.2 % (0.0-2.0); EOSINOPHIL % 0.2 % (0-5); GRANULOCYTE % 93.1 % (42.2-75.2); HEMATOCRIT 41.9 % (37-47); MEAN CORPUSCULAR HGB 31.9 PG (27.0-31.0); MEAN CORPUSCULAR HGB CONC 33.3 G/DL (33.0-37.0); MEAN CORPUSCULAR VOLUME 95.7 FL (81.0-99.0); MEAN PLATELET VOLUME 8.2 FL (7.4-10.4); PLATELET COUNT 345 /CUMM (130-400); RBC DISTRIBUTION WIDTH 13.6 % (11.5-14.5); RED BLOOD CELL CT 4.38 /CUMM (4.20-5.40); WHITE BLOOD CELL COUNT 18.8 /CUMM (4.8-10.8)
--- NOTE | 2017-09-28 11:14 | RADIOLOGY REPORT ---
EXAMINATION: XR CHEST CLINICAL INFORMATION: Productive cough, fever and generalized weakness COMPARISON: Previous chest x-ray most recent November 2016 TECHNIQUE: 2 views of the chest were obtained. FINDINGS: The cardiac and mediastinal contours are stable. There is increased opacity in the left lower lobe questionable for small left lower lobe pneumonia. The lungs are otherwise clear. There is no pleural effusion or pneumothorax. There are degenerative changes of the spine. IMPRESSION: Question small left lower lobe pneumonia.
[2017-09-28] MEDS ORDERED: ASPIRIN EC81 M1 PO (11:56)
[2017-09-28] MEDS ORDERED: FISH OIL 1,0001 EAC2 PO (11:57)
[2017-09-28] MEDS ORDERED: SPIRIVA RESPIMAT4 GM INH (11:58)
[2017-09-28] MEDS ORDERED: AMOX-CLAV 875-1 EACH PO (11:59)
--- NOTE | 2017-09-28 12:12 | History & Physical ---
Janna Live 09/28/17 1211: General Information and HPI MD Statement: I have seen and personally examined JASON CASTRO and documented this H&P. The patient is a 67 year old F who presented with a patient stated chief complaint of [CAP]. Source of Information: patient, old records Exam Limitations: no limitations History of Present Illness: Ms. Castro is a 67yo F active smoker w/ PMH of COPD not on home oxygen, hypertension, hyperlipidemia, CVA/TIA x 2 in 2009, chronic sinus infections, GERD and arthritis presented to the ER with T-max 100.4 at home, and increasing shortness of breath however without requiring any rescue inhalers for the past 3 days. Patient was recently seen by urgent care on 09/18/2017 for sinus pressure due to her underlying chronic sinusitis, and was given Augmentin for 10 days and prednisone tablets for 5 days. Patient then went on a trip to [facility], without any events during the trip without any sick contacts and nobody got sick from a trip. Patient was back on 09/25 and started feeling increasingly uncomfortable with profuse sweating, and later developed some increasing shortness of breath, without significant impact on her daily activities. Per patient, she had finished a course of Augmentin before the trip. Patient had fever of T-max 100.4 the night before ER visit, and the decided to bring the patient to the ER for further evaluation. At baseline, patient was ambulating freely, however with some balance issues but no recent falls. Patient had previous history of CVA/TIA more than 8 years ago, and was currently on Plavix/aspirin. Patient was compliant with all medications, and was not seeing any other doctors besides her PCP Dr. Childress. Patient has scheduled outpatient left shoulder replacement surgery on 10/13/2017, and has appointment of preop evaluation on coming Friday. Patient was concern of whether she would be able to make up to the schedule. During our clinical interaction, patient endorsed feeling of warmness, however denied sick contacts, lightheadedness/diaphoresis/night sweat/weight change/ Chest Pain/Palpitation/Abdominal pain/bowel movement or urinary abnormality, or other skin/musculoskeletal/neurological/mood disorders, or dietary/appetite change. -Smoking: Active smoker with half a pack per day -Alcohol: Occasional -Rec Drugs: Denied Allergies/Medications Allergies: Coded Allergies: No Known Allergies (08/01/16) Home Med list Amlodipine/Valsartan (Exforge 10-320 MG Tablet) 10 MG-320 MG TABLET 1 TAB PO DAILY HTN (Reported) NIGHTLY Aspirin (Ecotrin*) 81 MG TABLET.DR 1 TAB PO DAILY HEART/BLOOD (Reported) Atorvastatin Calcium (Lipitor) 40 MG TABLET 1 TAB PO DAILY CHOLESTEROL ( Reported) Carvedilol (Coreg) 25 MG TABLET 1 TAB PO BID HTN (Reported) Cholecalciferol (Vitamin D3) 1,000 UNIT TABLET 2 TAB PO DAILY PROPHO ( Reported) Clopidogrel Bisulfate (Clopidogrel) 75 MG TABLET 1 TAB PO DAILY BLOOD THINNER (Reported) Ferrous Sulfate 325 MG (65 MG IRON) TABLET 1 TAB PO TID ANEMIA (Reported) Fluticasone/Salmeterol (Advair 250-50 Diskus) 250 MCG-50 MCG/DOSE BLST.W.DEV 1 PUF INH BID COPD (Reported) Hydrochlorothiazide 12.5 MG TABLET 1 TAB PO DAILY BP (Reported) Melvin-3/Dha/Epa/Fish Oil (Fish Oil 1,000 MG Softgel) 300 MG-1,000 MG CAPSULE 1 CAP PO BID SUPPLEMENT (Reported) Pantoprazole Sodium (Protonix) 40 MG TABLET.DR 1 TAB PO DAILY GERD (Reported) Sertraline HCl (Zoloft) 100 MG TABLET 1 TAB PO DAILY DEPRESSION (Reported) Tiotropium [employer] (Spiriva Respimat) 2.5 MCG/ACTUATION MIST.INHAL 2 PUFF INH QAM COPD (Reported) Past History Travel History Traveled to [place] past 21 day No Medical History Neurological: CVA EENT: SINUS SURGERY Cardiovascular: hypertension, hyperlipidemia Respiratory: COPD Gastrointestinal: GERD Hepatic: NONE Renal: NONE Musculoskeletal: osteoarthritis Psychiatric: NONE Endocrine: NONE Blood Disorders: anemia Cancer(s): NONE OUTREACH PROFESSIONAL/Reproductive: TUBAL LIGITION History of MRSA: No History of VRE: No History of CDIFF: No Surgical History Surgical History: non-contributory, N Past Family/Social History Psychosocial History Services at Home: None ETOH Use: occasional use Illicit Drug Use: denies illicit drug use Review of Systems Review of Systems Constitutional: Reports: see HPI. Exam & Diagnostic Data Last 24 Hrs of Vital Signs/I&O Vital Signs Date Time Temp Pulse Resp B/P B/P Pulse O2 O2 Flow FiO2 Mean Ox Delivery Rate 09/28 1600 Room Air 09/28 1559 Room Air Room Air 09/28 1539 99.2 91 18 112/71 09/28 1538 99.2 91 18 112/71 09/28 1400 99.2 09/28 1400 99.2 09/28 1332 98.5 87 20 130/70 94 Room Air Room Air 09/28 1305 101.3 09/28 1015 95 Room Air Room Air 09/28 1008 93 09/28 0915 99.8 96 18 101/67 94 Room Air Room Air Intake & Output 09/28 1600 09/28 0800 09/28 0000 Intake Total 510 Output Total Balance 510 Intake, IV 270 Intake, Oral 240 Patient 81.306 kg Weight Weight Bed scale Measurement Method Physical Exam General Appearance Alert, Oriented X3, Cooperative, No Acute Distress Skin No Rashes, No Breakdown, No Significant Lesion Skin Temp/Moisture Exam: Warm/Dry Sepsis Skin Exam (color): Normal for Ethnicity HEENT Atraumatic, PERRLA Neck Supple, No JVD Cardiovascular Regular Rate, Normal S1, Normal S2 Lungs Clear to Auscultation, Normal Air Movement Abdomen Normal Bowel Sounds, Soft, No Tenderness Neurological Normal Speech, Strength at 5/5 X4 Ext, Normal Tone, Sensation Intact Extremities No Cyanosis, No Edema, Normal Pulses Last 24 Hrs of Labs/Bay: Laboratory Tests 09/28/17 1325: Urine Color YEL, Urine Clarity HAZY H, Urine pH 6.0, Ur Specific [place] >= 1.030, Urine Protein 100 H, Urine Ketones NEG, Urine Nitrite NEG, Urine Bilirubin NEG, Urine Urobilinogen 0.2, Ur Leukocyte Esterase NEG, Ur Microscopic SEDIMENT EXAMINED, Urine RBC 5-10 H, Urine WBC 1-3 H, Ur Epithelial Cells MOD H, Urine Bacteria FEW H, Hyaline Casts RARE H, Urine Mucus MOD H, Urine Hemoglobin MOD H, Urine Glucose NEG 09/28/17 1021: Anion Gap 12, Estimated GFR > 60, BUN/Creatinine Ratio 52.5 H, Troponin I < 0.01, CBC w Diff MAN DIFF ORDERED, RBC 4.38, MCV 95.7, MCH 31.9 H, MCHC 33.3, RDW 13.6, MPV 8.2, Gran % 93.1 H, Lymphocytes % 3.9 L, Monocytes % 2.6, Eosinophils % 0.2, Basophils % 0.2, Absolute Granulocytes 17.5 H, Absolute Lymphocytes 0.7 L, Absolute Monocytes 0.5, Absolute Eosinophils 0, Absolute Basophils 0, Normocytic RBCs VERIFIED, Normochromic RBCs VERIFIED Microbiology 09/28 1541 BLOOD: Blood Culture - RECD 09/28 1530 BLOOD: Blood Culture - RECD 09/28 1325 URINE ROUT: Legionella Antigen - COMP 09/28 132 URINE ROUT: Streptococcus pneumoniae Antigen (M - COMP Assessment/Plan Assessment: Ms. Castro is a 67yo F active smoker w/ PMH of COPD not on home oxygen, hypertension, hyperlipidemia, CVA/TIA x 2 in 2009, chronic sinus infections, GERD and arthritis presented to the ER with T-max 100.4 at home, and increasing shortness of breath however without requiring any rescue inhalers for the past 3 days. Patient was recently seen by urgent care on 09/18/2017 for sinus pressure due to her underlying chronic sinusitis, and was given Augmentin for 10 days and prednisone tablets for 5 days. Was positive leukocytosis with granulocytosis on lab, and positive chest x-ray findings with possible small left lower lobe pneumonia, patient's clinical picture likely represents a possible community-acquired pneumonia, with underlying COPD, however without active signs of exacerbation (no wheezing, no use of oxygen, no recent use of rescue inhaler at home). We will treat as community-acquired pneumonia who failed outpatient treatment, and given symptomatic relief for any fever/pain from osteoarthritis. On admission, Vitals: T-max 99.8, HR 96, BP 101/67, 94% on room air -CBC: Leukocytosis 18.1, H/H 14.0/41.9, PLT 345, granulocytosis 93.1%, no bandemia -BMP: Unremarkable, CR 0.4, negative troponin -CXR: Question small left lower lobe pneumonia. -EKG: NSR w/o significant ST-T abnormalities. -Last Echo: No echocardiographic in our system -Interventions in ER: Solu-Medrol 125 IV 1, ceftriaxone/azithromycin 1, nebulizers Problem list/Assessment/Hospital Course: #Community-acquired pneumonia #Leukocytosis secondary to infection #Active smoker #PMH of COPD not on home oxygen, hypertension, hyperlipidemia, CVA/TIA x 2 in 2009, chronic sinus infections, GERD and multiple-joint osteoarthritis - Admit to general medicine - Vitals per protocol, monitor I&O per protocol. - TRC/Nebulizer w/ supplemental O2 as needed - PT/OT if needed - Continue ceftriaxone/zithromax pending tailoring ABx per clinical course - Continue home meds - Pending blood cultures and urine antigens - Pain per pathway DVT prophylaxis Pharm PPX + ALPS Regular Diet IV Access: Peripheral IV Full Code As Ranked By This Provider Problem List: 1. Pneumathemia Core Measures/Misc (11/24) Acute Coronary Syndrome ACS Diagnosis: No Congestive Heart Failure Congestive Heart Failure Diagnosis No Cerebrovascular Accident CVA/TIA Diagnosis: No VTE (View Protocol) VTE Risk Factors Age>40 No Mechanical VTE Prophylaxis d/t N/A MechProphylax Ordered No VTE Pharm Prophylaxis d/t NA PharmProphylax ordered Sepsis (View protocol) Sepsis Present: No If YES complete Sepsis Event Note If YES complete Sepsis Event Note Aldo MENDEZ,Amir 09/28/17 1607: Core Measures/Misc (11/24) Sepsis (View protocol) If YES complete Sepsis Event Note If YES complete Sepsis Event Note Attending MD Review Statement Attending Statement Attending MD Statement: examined this patient, discuss w/resident/PA/MARKETING PROJECT SPECIALIST, agreed w/resident/PA/MARKETING PROJECT SPECIALIST, reviewed EMR data (avail), discussed with nursing Attending Assessment/Plan: Ms. Castro was seen and evaluated. Chart reviewed. Briefly, she is a 67 yo F, with PMHx of active smoking, COPD not on home oxygen, hypertension, hyperlipidemia, CVA/TIA x 2 in 2009, chronic sinus infections, GERD and arthritis p/w fever and inc SOB. She was recently seen by urgent care on 2017 for sinus pressure due to her underlying chronic sinusitis, and was given Augmentin for 10 days and prednisone tablets for 5 days. She came to ED c/o fever --agree with tx for PNA --f/u C&S --rest of the plan as per resident's note
[2017-09-28 13:32] VITALS: BP 130/70
--- NOTE | 2017-09-28 15:58 | Admission Certification ---
Admission Certification Certification Statement - As attending physician, I certify that at the time of - admission, based on clinical presentation, severity of - symptoms, need for further diagnostic testing and - therapeutic interventions, and risk of adverse outcomes - without in-hospital treatment, in my clinical assessment, - this patient requires an acute hospital stay for a minimum - of two nights or longer. I have also considered psychsocial - factors such as support system, advanced age, financial - issues, cognitive issues, and failed out-patient treatments, - past re-admission history, safety of patient, and lack of - compliance as applicable. Specific rationale supporting this admission is: Pneumonia
[2017-09-28 21:20] VITALS: BP 106/68
[2017-09-29 06:17] VITALS: BP 118/66
--- NOTE | 2017-09-29 08:16 | PN- Housestaff ---
See Addendum Subjective Follow-up For: Community acquired Pneumonia Subjective: Patient seen and examined at bedside. Patient states she is not coughing as much as she should. Patient states that she does feel better since admission, as she is less sweaty, has a little bit better breathing. Patient however states that her breathing is not 100% yet. Patient was asking about incentive spirometry, and how to properly use it. Patient was instructed, stated that she would get to 3000 today. Denies fevers/chills/night sweats/chest pain/abdominal pain/urinary symptoms/lower extremity edema Review of Systems Constitutional: Reports: see HPI. Objective Last 24 Hrs of Vital Signs/I&O Vital Signs Date Time Temp Pulse Resp B/P B/P Pulse O2 O2 Flow FiO2 Mean Ox Delivery Rate 09/29 0617 98.0 73 19 118/66 94 Room Air 09/29 0000 Room Air 09/28 2120 97.1 75 18 106/68 94 09/28 2036 72 20 110/68 09/28 1600 Room Air 09/28 1559 Room Air Room Air 09/28 1539 99.2 91 18 112/71 09/28 1538 99.2 91 18 112/71 09/28 1400 99.2 09/28 1400 99.2 09/28 1332 98.5 87 20 130/70 94 Room Air Room Air 09/28 1305 101.3 09/28 1015 95 Room Air Room Air 09/28 1008 93 09/28 0915 99.8 96 18 101/67 94 Room Air Room Air Intake & Output 09/29 1600 09/29 0800 09/29 0000 Intake Total 360 360 Output Total 400 Balance -40 360 Intake, Oral 360 360 Output, Urine 400 Physical Exam General Appearance: Alert, Oriented X3, Cooperative, No Acute Distress Skin: No Rashes Skin Temp/Moisture Exam: Warm/Dry Cardiovascular: Regular Rate, Normal S1, Normal S2 Lungs: rhonchi b/l lower lobes Abdomen: Soft, No Tenderness Neurological: Sensation Intact Extremities: No Edema Current Medications: Current Medications Sig/Maribel Start time Last Medication Dose Route Stop Time Status Admin Acetaminophen 650 MG Q6P PRN 09/28 1300 AC 09/28 PO 1834 Acetaminophen 1,000 MG Q6 PRN 09/28 1300 AC IV Albuterol Sulfate 3 ML EVERY 4 HRS/AWAKE 09/28 1600 AC 09/29 INH 0825 Albuterol Sulfate 3 ML ONCE ONE 09/28 1000 DC 09/28 INH 09/28 1001 1008 Amlodipine Besylate 10 MG DAILY 09/28 1300 AC 09/28 PO 1538 Aspirin Buffered 81 MG DAILY 09/28 1400 AC 09/28 PO 1539 Atorvastatin Calcium 40 MG DAILY 09/28 1400 AC 09/28 PO 1539 Azithromycin 250 MG 1200 09/29 1200 AC PO Azithromycin 500 MG ONCE ONE 09/28 1130 DC 09/28 Sodium Chloride 250 ML IV 09/28 1229 1145 Carvedilol 25 MG BID 09/28 1400 AC 09/28 PO 2036 Ceftriaxone Sodium 1,000 MG 1200 09/29 1200 AC IV Ceftriaxone Sodium 0 .STK-MED ONE 09/28 1139 DC .ROUTE Ceftriaxone Sodium 1,000 MG ONCE ONE 09/28 1130 DC 09/28 IV 09/28 1131 1145 Cholecalciferol 1,000 IU DAILY 09/28 1400 AC 09/28 PO 1540 Clopidogrel Bisulfate 75 MG DAILY 09/28 1400 AC 09/28 PO 1540 Enoxaparin Sodium 40 MG DAILY 09/29 0900 AC SC Ferrous Sulfate 325 MG TID 09/28 1400 AC 09/28 PO 2036 Fish Oil 1,050 MG DAILY 09/28 1400 AC 09/28 PO 1540 Guaifenesin 600 MG Q12 09/28 2100 AC 09/28 PO 2036 Hydrochlorothiazide 12.5 MG DAILY 09/28 1400 AC 09/28 PO 1539 Ipratropium [place] 2.5 ML EVERY 4 HRS/AWAKE 09/28 1600 AC 09/29 INH 0825 Ipratropium [place] 2.5 ML ONCE ONE 09/28 1000 DC 09/28 INH 09/28 1001 1008 Melatonin 5 MG AT BEDTIME 09/28 2100 AC 09/28 PO 2036 Methylprednisolone 125 MG ONCE ONE 09/28 1145 DC 09/28 IV 09/28 1146 1145 Methylprednisolone 0 .STK-MED ONE 09/28 1139 DC .ROUTE Nicotine 21 MG ONCE ONE 09/28 1145 DC 09/28 TOP 09/28 1146 1145 Nicotine 0 .STK-MED ONE 09/28 1139 DC TOP Omeprazole 40 MG DAILY AC 09/28 1400 AC 09/29 PO 0602 Ramelteon 8 MG ONCE ONE 09/28 2315 CAN PO 09/28 2316 Sertraline HCl 100 MG DAILY 09/28 1400 AC 09/28 PO 1541 Tiotropium [place] 1 PUF DAILY 09/29 0900 AC INH Last 24 Hrs of Lab/Bay Results Last 24 Hrs of Labs/Mics: Laboratory Tests 09/28/17 1325: Urine Color YEL, Urine Clarity HAZY H, Urine pH 6.0, Ur Specific [place] >= 1.030, Urine Protein 100 H, Urine Ketones NEG, Urine Nitrite NEG, Urine Bilirubin NEG, Urine Urobilinogen 0.2, Ur Leukocyte Esterase NEG, Ur Microscopic SEDIMENT EXAMINED, Urine RBC 5-10 H, Urine WBC 1-3 H, Ur Epithelial Cells MOD H, Urine Bacteria FEW H, Hyaline Casts RARE H, Urine Mucus MOD H, Urine Hemoglobin MOD H, Urine Glucose NEG 09/28/17 1021: Anion Gap 12, Estimated GFR > 60, BUN/Creatinine Ratio 52.5 H, Troponin I < 0.01, CBC w Diff MAN DIFF ORDERED, RBC 4.38, MCV 95.7, MCH 31.9 H, MCHC 33.3, RDW 13.6, MPV 8.2, Gran % 93.1 H, Lymphocytes % 3.9 L, Monocytes % 2.6, Eosinophils % 0.2, Basophils % 0.2, Absolute Granulocytes 17.5 H, Absolute Lymphocytes 0.7 L, Absolute Monocytes 0.5, Absolute Eosinophils 0, Absolute Basophils 0, Normocytic RBCs VERIFIED, Normochromic RBCs VERIFIED Microbiology 09/28 1541 BLOOD: Blood Culture - RECD 09/28 1530 BLOOD: Blood Culture - RECD 09/28 1325 URINE ROUT: Legionella Antigen - COMP 09/28 132 URINE ROUT: Streptococcus pneumoniae Antigen (M - COMP Assessment/Plan Assessment: Ms. Castro is a 67-year-old female with a past medical history of COPD not on home oxygen, hypertension, hyperlipidemia, CVA/TIA 2 in 2009, chronic sinus infections, GERD, arthritis who presents with diaphoresis, T-max 100.4 at home, increasing short of breath for 3 days after completion of Augmentin for 10 days and steroids for 5 days for chronic sinusitis. She is admitted for treatment of community-acquired pneumonia #Community acquired pneumonia -Urine antigens negative -F/u blood cultures -Leukocytosis 18.8 -> 25.6 today verified by lab. Will get one tomorrow to see if trending downwards #COPD -TRC, O2 as needed; not on home oxygen #HTN -HCTZ 12.5mg, Coreg 25mg, Amlodipine 10mg #HLD -Fish oil #GERD -On omeprazole #Arthritis -Scheduled for L shoulder replacement surgery in early october DVT PPx IV Access DNR/DNI Tolerating Regular Diet Dispo - to home Problem List: 1. Community acquired pneumonia Pain Ratin Pain Location: NA Pain Goal: Pain 4 or less Pain Plan: PATHWAY Tomorrow's Labs & Rationales: CBC
[2017-09-29 09:07] LABS: ABSOLUTE BASOPHIL COUNT 0 /CUMM (0.0-0.2); ABSOLUTE EOSINOPHIL COUNT 0 /CUMM (0.0-0.7); ABSOLUTE GRANULOCYTE CT 24.1 /CUMM (1.4-6.5); ABSOLUTE LYMPH COUNT 0.5 /CUMM (1.2-3.4); BASOPHIL % 0 % (0.0-2.0); EOSINOPHIL % 0 % (0-5); GRANULOCYTE % 94.3 % (42.2-75.2); HEMATOCRIT 39.2 % (37-47); MEAN CORPUSCULAR HGB 31.9 PG (27.0-31.0); MEAN CORPUSCULAR HGB CONC 32.9 G/DL (33.0-37.0); MEAN CORPUSCULAR VOLUME 97.1 FL (81.0-99.0); PLATELET COUNT 348 /CUMM (130-400); RED BLOOD CELL CT 4.04 /CUMM (4.20-5.40)
[2017-09-29 10:30] LABS: WHITE BLOOD CELL COUNT 25.6 /CUMM (4.8-10.8)
[2017-09-29 14:24] VITALS: BP 106/58
[2017-09-29 21:30] VITALS: BP 118/72
[2017-09-30 06:20] VITALS: BP 124/66
--- NOTE | 2017-09-30 07:34 | Patient Discharge Instructions ---
Discharge Instructions General Discharge Information Special Instructions: - Please follow up with your primary care physician within 1-2 weeks of discharge. Inform your primary care physician of this admission to [facility]. - Continue your current medications per discharge instructions. - Please watch for these problems: Fever, Chills, Nausea, Vomiting, Shortness of Breath, Productive Cough, Chest Pain/Discomfort, Abdominal Pain, Active Bleeding or Bloody urine/stool. Diet Continue normal diet: Yes Activity Full Activity/No Limits: Yes Acute Coronary Syndrome Inclusion Criteria At DC or during hospital stay patient has or had the following: ACS DIAGNOSIS No Discharge Core Measures Meds if any: Prescribed or Continued at Discharge Meds if any: NOT Prescribed or Continued at Discharge Congestive Heart Failure Inclusion Criteria At DC or during hospital stay patient has or had the following: CHF DIAGNOSIS No Discharge Core Measures Meds if any: Prescribed or Continued at Discharge Meds if any: NOT Prescribed or Continued at Discharge Cerebrovascular accident Inclusion Criteria At DC or during hospital stay patient has or had the following: CVA/TIA Diagnosis No Discharge Core Measures Meds if any: Prescribed or Continued at Discharge Meds if any: NOT Prescribed or Continued at Discharge Venous thromboembolism Inclusion Criteria VTE Diagnosis No VTE Type NONE VTE Confirmed by (Test) NONE Discharge Core Measures - Per Current guidelines, there needs to be overlap - treatment for the first 5 days of Warfarin therapy. - If discharged on Warfarin prior to 5 days of - overlap therapy, the patient will need to be - assessed for post discharge needs including - *Post discharge parental anticoagulation - *Warfarin and/or parental anticoagulation education - *Follow up date to check INR post discharge At least 5 days overlap therapy as Inpatient No Meds if any: Prescribed or Continued at Discharge Note: Overlap Therapy is Warfarin and Anticoagulant Meds if any: NOT Prescribed or Continued at Discharge
[2017-09-30] MEDS ORDERED: KEFLEX750 M1 PO ×2 (07:35→09:55)
--- NOTE | 2017-09-30 08:19 | Discharge Summary ---
See Addendum Visit Information Visit Dates Admission Date: 09/28/17 Discharge Date: 09/30/17 Hospital Course Course Attending Physician: Clau MENDEZ,Jelani Primary Care Physician: Parvez Childress MD Hospital Course: Ms. Castro is a 67yo F active smoker w/ PMH of COPD not on home oxygen, hypertension, hyperlipidemia, CVA/TIA x 2 in 2009, chronic sinus infections, GERD and arthritis presented to the ER with T-max 100.4 at home, and increasing shortness of breath however without requiring any rescue inhalers for the past 3 days. Patient was recently seen by urgent care on 09/18/2017 for sinus pressure due to her underlying chronic sinusitis, and was given Augmentin for 10 days and prednisone tablets for 5 days. Was positive leukocytosis with granulocytosis on lab, and positive chest x-ray findings with possible small left lower lobe pneumonia, patient's clinical picture likely represents a possible community-acquired pneumonia, with underlying COPD, however without active signs of exacerbation (no wheezing, no use of oxygen, no recent use of rescue inhaler at home). We will treat as community-acquired pneumonia who failed outpatient treatment, and given symptomatic relief for any fever/pain from osteoarthritis. On admission, Vitals: T-max 99.8, HR 96, BP 101/67, 94% on room air -CBC: Leukocytosis 18.1, H/H 14.0/41.9, PLT 345, granulocytosis 93.1%, no bandemia -BMP: Unremarkable, CR 0.4, negative troponin -CXR: Question small left lower lobe pneumonia. -EKG: NSR w/o significant ST-T abnormalities. -Last Echo: No echocardiographic in our system -Interventions in ER: Solu-Medrol 125 IV 1, ceftriaxone/azithromycin 1, nebulizers Patient was admitted to the general medicine floor. Patient was continued on ceftriaxone and azithromycin. Patient was afebrile throughout her course, initially did have leukocytosis that increase to 25, however trended down by hospital day 3 to 15. Patient ambulated on her own, was instructed on incentive spirometry, was restarted on nicotine patches as she smokes, and nebulizers as needed. Patient was counseled on smoking cessation, is in the contemplation phase of changing, and stated that she will try her best to quit outpatient. Patient completed 3 days of ceftriaxone and azithromycin, with good clinical improvement, and was given 2 days of Keflex and azithromycin p.o. to complete outpatient. Patient states that she will follow-up with her primary, and has a presurgical appointment for shoulder replacement on Friday as well. Patient verbalized understanding of the plan, was given strict return precautions, and was discharged to home. Hospital course without complications. Allergies: Coded Allergies: No Known Allergies (08/01/16) Significant Procedures: 09/28 CXR XR CHEST CLINICAL INFORMATION: Productive cough, fever and generalized weakness COMPARISON: Previous chest x-ray most recent November 2016 TECHNIQUE: 2 views of the chest were obtained. FINDINGS: The cardiac and mediastinal contours are stable. There is increased opacity in the left lower lobe questionable for small left lower lobe pneumonia. The lungs are otherwise clear. There is no pleural effusion or pneumothorax. There are degenerative changes of the spine. IMPRESSION: Question small left lower lobe pneumonia. Pertinent Lab Results: Legionella, Strep Pneumo urina AG neg Disposition Summary Disposition Principal Diagnosis: #Community Acquired Pneumonia #COPD not on home oxygen #HTN #HLD #GERD #Arthritis Additional Diagnosis: as above Discharge Disposition: home or self care Discharge Instructions General Discharge Information Code Status: Do Not Resucitate/Intubat Patient's Diet: As tolerated Patient's Activity: As tolerated Follow-Up Instructions/Appts: - Please follow up with your primary care physician within 1-2 weeks of discharge. Inform your primary care physician of this admission to [facility]. - Continue your current medications per discharge instructions. - Please watch for these problems: Fever, Chills, Nausea, Vomiting, Shortness of Breath, Productive Cough, Chest Pain/Discomfort, Abdominal Pain, Active Bleeding or Bloody urine/stool. Medications at Discharge Discharge Medications: Continue taking these medications: Amlodipine/Valsartan (Exforge 10-320 MG Tablet) 10 MG-320 MG TABLET 1 Tablet ORAL DAILY Instructions: NIGHTLY Comments: Last Taken: 09/30/17 Time: 8:57 AM Atorvastatin Calcium (Lipitor) 40 MG TABLET 1 Tablet ORAL DAILY Comments: Last Taken: 09/30/17 Time: 8:57 Sertraline HCl (Zoloft) 100 MG TABLET 1 Tablet ORAL DAILY Comments: Last Taken: 09/30/17 Time: 8:56 AM Pantoprazole Sodium (Protonix) 40 MG TABLET.DR 1 Tablet ORAL DAILY Comments: OMEPRAZOLE GIVEN Last Taken: 09/30/17 Time: 6:15 AM Cholecalciferol (Vitamin D3) 1,000 UNIT TABLET 2 Tablet ORAL DAILY Comments: Last Taken: 09/30/17 Time: 8:57 AM Ferrous Sulfate (Ferrous Sulfate) 325 MG (65 MG IRON) TABLET 1 Tablet ORAL THREE TIMES DAILY Comments: Last Taken: 09/30/17 Time: 8:56 AM Carvedilol (Coreg) 25 MG TABLET 1 Tablet ORAL TWICE DAILY Comments: Last Taken: 09/30/17 Time: 8:56 AM Hydrochlorothiazide (Hydrochlorothiazide) 12.5 MG TABLET 1 Tablet ORAL DAILY Comments: Last Taken: 09/30/17 Time: 8:57 AM Fluticasone/Salmeterol (Advair 250-50 Diskus) 250 MCG-50 MCG/DOSE BLST.W.DEV 1 Puff Inhale through mouth TWICE DAILY Comments: NOT GIVEN IN HOSPITAL Clopidogrel Bisulfate (Clopidogrel) 75 MG TABLET 1 Tablet ORAL DAILY Qty = 90 Comments: Last Taken: 09/30/17 Time: 8:56 AM Aspirin (Ecotrin*) 81 MG TABLET.DR 1 Tablet ORAL DAILY Comments: Last Taken: 09/30/17 Time: 8:57 AM [place]-3/Dha/Epa/Fish Oil (Fish Oil 1,000 MG Softgel) 300 MG-1,000 MG CAPSULE 1 Capsule ORAL TWICE DAILY Comments: Last Taken: 09/30/17 Time: 8:57 AM Tiotropium [place] (Spiriva Respimat) 2.5 MCG/ACTUATION MIST.INHAL 2 PUFF Inhale through mouth Every Morning Comments: Last Taken: 09/30/17 Time: 8:57 AM Start taking the following new medications: Cephalexin (Keflex) 750 MG CAPSULE 1 Capsule ORAL TWICE DAILY Qty = 4 No Refills Instructions: . Azithromycin (Azithromycin) 250 MG TABLET 250 Milligram ORAL 1200 Qty = 2 No Refills Comments: Last Taken: 09/30/17 Time: 11:46 AM Copies To: Fior MENDEZ,Parvez Solis
--- NOTE | 2017-09-30 08:19 | PN- Housestaff ---
See Addendum Subjective Follow-up For: Community Acquired Pneumonia Subjective: Patient seen and examined at bedside. Patient states that while she was walking yesterday, she began feeling short of breath. Patient states that she had to go back, and is now asking if she is safe for discharge today. Patient states that she is very "complicated patient "according to Dr. Childress, and says that she routinely fails with several different antibiotics. Patient was counseled on the causes of wheezing, her COPD, smoking cessation, and reassured about her current clinical course. Denies fevers/chills/night sweats/chest pain/abdominal pain/urinary symptoms/lower extremity edema Review of Systems Constitutional: Reports: see HPI. Objective Last 24 Hrs of Vital Signs/I&O Vital Signs Date Time Temp Pulse Resp B/P B/P Pulse O2 O2 Flow FiO2 Mean Ox Delivery Rate 09/30 0620 98.3 61 20 124/66 93 Nasal Cannula 09/30 0000 93 Nasal 2.0L Cannula 09/29 2144 69 118/72 09/29 2130 98.3 69 20 118/72 90 Room Air 09/29 1633 93 Room Air 09/29 1600 Room Air 09/29 1424 97.3 70 20 106/58 99 09/29 1224 97 Room Air Room Air 09/29 0910 73 124/72 09/29 0908 73 124/72 Intake & Output 09/30 1600 09/30 0800 09/30 0000 Intake Total Output Total Balance Number 0 Bowel Movements Physical Exam General Appearance: Alert, Oriented X3, Cooperative, No Acute Distress Skin: No Rashes Skin Temp/Moisture Exam: Warm/Dry Cardiovascular: Regular Rate, Normal S1, Normal S2 Lungs: rhonchi, wheeze b/l lower lobes Abdomen: Soft, No Tenderness Neurological: Normal Speech, Sensation Intact Extremities: No Edema Current Medications: Current Medications Sig/Maribel Start time Last Medication Dose Route Stop Time Status Admin Acetaminophen 650 MG .STK-MED ONE 09/29 1714 DC PO 09/29 1715 Acetaminophen 650 MG .STK-MED ONE 09/29 0900 DC PO 09/29 0901 Acetaminophen 650 MG Q6P PRN 09/28 1300 AC 09/30 PO 0346 Acetaminophen 1,000 MG Q6 PRN 09/28 1300 AC IV Albuterol Sulfate 3 ML EVERY 4 HRS/AWAKE 09/28 1600 AC 09/29 INH 2036 Amlodipine Besylate 10 MG DAILY 09/28 1300 AC 09/29 PO 0910 Aspirin Buffered 81 MG DAILY 09/28 1400 AC 09/29 PO 1256 Atorvastatin Calcium 40 MG DAILY 09/28 1400 AC 09/29 PO 0909 Azithromycin 250 MG 1200 09/29 1200 AC 09/29 PO 10/02 1201 1246 Carvedilol 25 MG BID 09/28 1400 AC 09/29 PO 2144 Ceftriaxone Sodium 1,000 MG 1200 09/29 1200 AC 09/29 IV 1425 Cholecalciferol 1,000 IU DAILY 09/28 1400 AC 09/29 PO 0911 Clopidogrel Bisulfate 75 MG DAILY 09/28 1400 AC 09/29 PO 0911 Enoxaparin Sodium 40 MG DAILY 09/29 0900 AC SC Ferrous Sulfate 325 MG TID 09/28 1400 AC 09/29 PO 2144 Fish Oil 1,050 MG DAILY 09/28 1400 AC 09/29 PO 0911 Guaifenesin 600 MG Q12 09/28 2100 AC 09/29 PO 2144 Hydrochlorothiazide 12.5 MG DAILY 09/28 1400 AC 09/29 PO 0909 Ipratropium [place] 2.5 ML EVERY 4 HRS/AWAKE 09/28 1600 AC 09/29 INH 2036 Melatonin 5 MG AT BEDTIME 09/28 2100 AC 09/28 PO 2036 Nicotine 0 .STK-MED ONE 09/29 1015 DC TOP 09/29 1016 Nicotine 21 MG DAILY 09/29 1014 AC 09/29 TOP 1445 Omeprazole 40 MG DAILY AC 09/28 1400 AC 09/30 PO 0615 Sertraline HCl 100 MG DAILY 09/28 1400 AC 09/29 PO 0912 Tiotropium [place] 1 PUF DAILY 09/29 0900 AC 09/29 INH 1245 Assessment/Plan Assessment: Ms. Castro is a 67-year-old female with a past medical history of COPD not on home oxygen, hypertension, hyperlipidemia, CVA/TIA 2 in 2009, chronic sinus infections, GERD, arthritis who presents with diaphoresis, T-max 100.4 at home, increasing short of breath for 3 days after completion of Augmentin for 10 days and steroids for 5 days for chronic sinusitis. She is admitted for treatment of community-acquired pneumonia #Community acquired pneumonia for two days, Azithro for two more as well -Urine antigens negative -F/u blood cultures -Leukocytosis 18.8 -> 25.6 today verified by lab. Awaiting current CBC #COPD -TRC, O2 as needed; not on home oxygen #HTN -HCTZ 12.5mg, Coreg 25mg, Amlodipine 10mg #HLD -Fish oil #GERD -On omeprazole #Arthritis -Scheduled for L shoulder replacement surgery in early october DVT PPx IV Access DNR/DNI Tolerating Regular Diet Dispo - to home, potentially today Problem List: 1. Community acquired pneumonia Pain Ratin Pain Location: na Pain Goal: Pain 4 or less Pain Plan: pathway Tomorrow's Labs & Rationales: na
[2017-09-30 08:57] VITALS: BP 122/80
[2017-09-30] MEDS ORDERED: AZITHROMYCIN250 M1 PO (09:54)
[2017-09-30 10:12] LABS: ABSOLUTE BASOPHIL COUNT 0 /CUMM (0.0-0.2); ABSOLUTE EOSINOPHIL COUNT 0.1 /CUMM (0.0-0.7); ABSOLUTE GRANULOCYTE CT 13.1 /CUMM (1.4-6.5); ABSOLUTE LYMPH COUNT 1.4 /CUMM (1.2-3.4); ABSOLUTE MONOCYTE COUNT 0.4 /CUMM (0.10-0.60); BASOPHIL % 0.2 % (0.0-2.0); EOSINOPHIL % 0.8 % (0-5); HEMATOCRIT 38.7 % (37-47); MEAN CORPUSCULAR HGB 32.2 PG (27.0-31.0); MEAN CORPUSCULAR VOLUME 97.4 FL (81.0-99.0); RBC DISTRIBUTION WIDTH 13.4 % (11.5-14.5); RED BLOOD CELL CT 3.97 /CUMM (4.20-5.40)
[2017-09-30 10:56] LABS: GRANULOCYTE % 87.1 % (42.2-75.2); PLATELET COUNT 359 /CUMM (130-400)
== END 2017-09-30 13:18 | DRG 195 ==
LOC: ERH 09:11 → 2NA 11:34 → ERHI 11:34 → ENTRNSPT 13:06 → EDTRNSPTSTS 13:12 → EDTRNSPT 13:12 → CMPTRNSPT 13:30 → 2NA 13:31 → ENPENDDIS 09-30 10:03 → ENTRNSPT 09-30 12:45 → EDTRNSPTSTS 09-30 13:14 → EDTRNSPT 09-30 13:14 → 2NA 09-30 13:18 → CMPTRNSPT 09-30 13:30
PROVIDERS: Student in an Organized Health Care Education/Training Program
DX: J18.9 Pneumonia, unspecified organism (principal); I10 Essential (primary) hypertension; E78.5 Hyperlipidemia, unspecified; Z86.73 Personal history of transient ischemic attack (TIA), and cerebral infarction without residual deficits; K21.9 Gastro-esophageal reflux disease without esophagitis; J44.9 Chronic obstructive pulmonary disease, unspecified; M19.90 Unspecified osteoarthritis, unspecified site; D72.829 Elevated white blood cell count, unspecified; Z98.51 Tubal ligation status; Z79.51 Long term (current) use of inhaled steroids; Z79.82 Long term (current) use of aspirin; Z66 Do not resuscitate; F17.210 Nicotine dependence, cigarettes, uncomplicated
CPT/HCPCS: 2NASP; 36415; 36592; 71046; 81001; 82436; 87040; 87449; 87450; 93005; 93010; 96365; J0131; J0456; J0696; J1650; J2930; J7040